=== PATIENT | female | born 2000 | race Caucasian/White ===

== ENCOUNTER → 2022-12-28 | Outpatient (CLI) | payer MEDICAID ==
[2022-12-28 15:49] LABS: HGB 12.5 d/dL (12.0-15.0); MCH 25.3 pg (27.0-32.0); MCHC 32.1 d/dL (32.0-37.0); MCV 78.9 FL (80.0-97.0); Mean Platelet Volume 9.7 FL (9.5-12.2); NRBC Per 100 WBC 0 X 10*3/uL (0.00-0.01); Platelet Count 345 X 10*3/uL (140-440); RBC 4.94 X 10*6/uL (4.10-5.20); RDW 14.1 % (11.5-14.5); WBC 10.62 X 10*3/uL (4.50-10.00)
[2022-12-28 16:02] LABS: T4, Free (Free Thyroxine) 1.12 ng/dL (0.80-1.80); Testosterone 55.2 ng/dL (9.01-47.94)
[2022-12-28 16:48] LABS: Follicle Stimulating Hormone 5.6 mIU/mL
== END | disposition home or self-care (01) ==
LOC: LABMAIN 10:52
PROVIDERS: ATTEND Obstetrics & Gynecology Obstetrics
DX: N92.0 Excessive and frequent menstruation with regular cycle (principal)
CPT/HCPCS: 83001; 83036; 84403; 84439; 84443; 85027

== ENCOUNTER 2024-10-01 11:46 | Emergency (ER) | payer OTHER, BC ==
--- NOTE | 2024-10-01 12:19 | ED ---
General Adult HPI - General Chief complaint: Head Injury Stated complaint: [facility]- Head Injury Time Seen by Provider: 10/01/24 12:05 Source: patient, RN notes reviewed Mode of arrival: ambulatory Limitations: no limitations - History of Present Illness Initial comments: Patient is a 23-year-old female presenting to the emergency department with concern for head injury. Patient states she was struck in the chin by a medium size dog and has had symptoms since that time. Patient feels dizzy. Patient has nausea, no vomiting. Patient does have headache. Headache is rated 4/10. - Related Data Allergies Allergy/AdvReac Type Severity Reaction Status Date / Time No Known Allergies Allergy Verified 10/01/24 11:59 Review of Systems ROS Statement: Those systems with pertinent positive or pertinent negative responses have been documented in the HPI. ROS Other: All systems not noted in ROS Statement are negative. Constitutional: Denies: fever Eyes: Denies: eye pain ENT: Denies: ear pain Respiratory: Denies: cough Cardiovascular: Denies: chest pain Endocrine: Denies: fatigue Gastrointestinal: Reports: nausea Neurological: Reports: as per HPI, headache. Denies: weakness Past Medical History Additional Past Medical History / Comment(s): PCOS History of Any Multi-Drug Resistant Organisms: None Reported Past Surgical History: No Surgical Hx Reported Past Psychological History: Anxiety Smoking Status: Never smoker Past Alcohol Use History: Occasional Past Drug Use History: None Reported General Exam Limitations: no limitations General appearance: alert, in no apparent distress Head exam: Present: atraumatic Eye exam: Present: normal appearance, PERRL, EOMI ENT exam: Present: normal oropharynx Neck exam: Present: normal inspection, full ROM. Absent: tenderness Respiratory exam: Present: normal lung sounds bilaterally Cardiovascular Exam: Present: regular rate, normal rhythm GI/Abdominal exam: Present: soft. Absent: tenderness Extremities exam: Present: normal inspection Neurological exam: Present: alert, CN II-XII intact. Absent: motor sensory deficit Expanded Neurological exam: Present: protecting the airway Speech: Present: fluid speech Cranial nerves: EOM's Intact: Normal, Facial Sensation: Normal Sensory exam: Upper Extremity Light Touch: Normal, Lower Extremity Light Touch: Normal Motor strength exam: RUE: 5, LUE: 5, RLE: 5, LLE: 5 Eye Response: (4) open spontaneously Motor Response: (6) obeys commands Verbal Response: (5) oriented Psychiatric exam: Present: normal affect, normal mood Skin exam: Present: normal color Course Vital Signs 10/01/24 10/01/24 12:00 12:45 Temperature 97.6 F 98.7 F Pulse Rate 96 89 Respiratory 16 18 Rate Blood Pressure 139/86 124/83 O2 Sat by Pulse 98 98 Oximetry Medical Decision Making - Medical Decision Making CT scan ordered secondary to dangerous mechanism of injury Was pt. sent in by a medical professional or institution (, PA, SEQUINS SPOOLER, urgent care, hospital, or detention...) When possible be specific @ -Patient sent from work Did you speak to anyone other than the patient for history (EMS, parent, family, police, friend...)? What history was obtained from this source @ -No Did you review nursing and triage notes (agree or disagree)? Why? @ -I reviewed and agree with nursing and triage notes Were old charts reviewed (outside hosp., previous admission, EMS record, old EKG, old radiological studies, urgent care reports/EKG's, detention records)? Report findings @ -No old charts were reviewed Differential Diagnosis (chest pain, altered mental status, abdominal pain women, abdominal pain men, vaginal bleeding, weakness, fever, dyspnea, syncope, headache, dizziness, GI bleed, back pain, seizure, CVA, palpatations, mental health, musculoskeletal)? @ -Differential Headache: Migraine, tension, cluster, carbon monoxide, central venous thrombosis, pension karma temporal arteritis, acute closure glaucoma, intercranial hemorrhage, mastoiditis, sinusitis, head injury, this is not meant to be an all-inclusive list. EKG interpreted by me (3pts min.). @ -As above X-rays interpreted by me (1pt min.). @ -None done CT interpreted by me (1pt min.). @ -CT scan of the brain shows no acute intercranial abnormality. There is left maxillary sinus cyst U/S interpreted by me (1pt. min.). @ -None done What testing was considered but not performed or refused? (CT, X-rays, U/S, labs)? Why? @ -None What meds were considered but not given or refused? Why? @ -None Did you discuss the management of the patient with other professionals (professionals i.e. , PA, SEQUINS SPOOLER, lab, RT, psych nurse, licensed master social worker, landscape designer, teacher, deck officer, case aide)? Give summary @ -No Was smoking cessation discussed for >3mins.? @ -No Was critical care preformed (if so, how long)? @ -No Were there social determinants of health that impacted care today? How? (Homelessness, low income, unemployed, alcoholism, drug addiction, transportation, low edu. Level, literacy, decrease access to med. care, prison, rehab)? @ -No Was there de-escalation of care discussed even if they declined (Discuss DNR or withdrawal of care, Hospice)? DNR status @ -No What co-morbidities impacted this encounter? (DM, HTN, Smoking, COPD, CAD, Cancer, CVA, ARF, Chemo, Hep., AIDS, mental health diagnosis, sleep apnea, morbid obesity)? @ -None Was patient admitted / discharged? Hospital course, mention meds given and route, prescriptions, significant lab abnormalities, going to OR and other pertinent info. @ -Patient presents with head injury with associated nausea, headache and lightheadedness. CT scan without acute intracranial abnormality. Patient updated on results. Patient offered Tylenol and antiemetic medication however refuses. Undiagnosed new problem with uncertain prognosis? @ -No Drug Therapy requiring intensive monitoring for toxicity (Heparin, Nitro, Insulin, Cardizem)? @ -No Were any procedures done? @ -No Diagnosis/symptom? @ -Head injury Acute, or Chronic, or Acute on Chronic? @ -Acute Uncomplicated (without systemic symptoms) or Complicated (systemic symptoms)? @ -Default Side effects of treatment? @ -No Exacerbation, Progression, or Severe Exacerbation? @ -No Poses a threat to life or bodily function? How? (Chest pain, [place], [place], pneumonia, PE, COPD, DKA, ARF, appy, cholecystitis, CVA, Diverticulitis, Homicidal, Suicidal, threat to staff... and all critical care pts) @ -No Disposition Clinical Impression: Head injury Disposition: HOME SELF-CARE Condition: Stable Instructions (If sedation given, give patient instructions): Head Injury (ED) Additional Instructions: Please do follow-up with [facility] [employer] [facility] in the next day or 2. [id number] Tylenol as needed. Return for vomiting, weakness, confusion, worsening headaches, worsening symptoms or other concerns. Is patient prescribed a controlled substance at d/c from ED?: No Referrals: Janet Leonardo DO [Primary Care Provider] - 1-2 days Time of Disposition: 13:18
[2024-10-01 12:47] VITALS: BP 124/83; RESP 18
--- NOTE | 2024-10-01 13:12 | CT ---
EXAMINATION TYPE: CT brain wo con DATE OF EXAM: 10/01/2024 12:17 PM COMPARISON: None. CLINICAL INDICATION: Female, 23 years old with history of headache, bumped heads with a dog, TECHNIQUE: Examination was done in axial plane without intravenous contrast. Coronal and sagittal r econstructions performed. CT DLP: 1096.4 mGycm, Automated exposure control for dose reduction was used. FINDINGS: There is no evidence of acute intracranial hemorrhage, acute ischemic changes, mass, mass-effect, or extra-axial fluid collection. There is no effacement of cerebral sulci or basal subarachnoid cister ns. There is no hydrocephalus. There is no midline shift. Swan-white matter distinction is preserv ed. There is a 2.4 cm mucosal retention cyst within the left maxillary sinus. Mastoid air cells well pneu matized. Orbits and globes are intact. IMPRESSION: No acute intracranial abnormality seen. Incidental 2.4 cm mucosal retention cyst of the left maxillar y sinus. [facility], , 10/01/2024 12:49 PM
[2024-10-01] MEDS: ACETAMINOPHEN TAB 500 MG TAB PO STA (13:55)
[2024-10-01 13:57] VITALS: PULSE 78; TEMP 98.1
== END 2024-10-01 13:57 | disposition home or self-care (01) ==
LOC: EC 11:46
DX: S09.90XA Unspecified injury of head, initial encounter (principal); W54.1XXA Struck by dog, initial encounter
CPT/HCPCS: 70450; 99284

== ENCOUNTER 2024-12-26 13:05 | Emergency (ER) | payer BC, MEDICAID ==
[2024-12-26] MEDS: SODIUM CHLORIDE 0.9% 1,000 ML IV ONE (14:09)
[2024-12-26] MEDS: ONDANSETRON 4 MG/2 ML VIAL IVP STA (14:10)
[2024-12-26] MEDS: KETOROLAC 15 MG/ML 1 ML VIAL IVP STA (14:10)
[2024-12-26 14:30] LABS: ALT 13 U/L (4-34); AST 20 U/L (14-36); African American GFR (CKD) >90 (>60 ml/min/1.73 sqM); Albumin 4.5 g/dL (3.5-5.0); Alkaline Phosphatase 79 U/L (38-126); Anion Gap 12 mmol/L; Blood Urea Nitrogen 13 mg/dL (7-17); Calcium 9.9 mg/dL (8.4-10.2); Carbon Dioxide 22 mmol/L (22-30); Chloride 103 mmol/L (98-107); Glucose 86 mg/dL (74-99); Lipase 112 U/L (23-300); Non-African American GFR(CKD) >90 (>60 ml/min/1.73 sqM); Potassium 4.4 mmol/L (3.5-5.1); Sodium 137 mmol/L (137-145); Total Protein 8.1 g/dL (6.3-8.2)
[2024-12-26 14:41] LABS: Bacteria,Urine Rare /hpf; Bilirubin,Urine Negative (Negative); Blood,Urine Moderate (Negative); Color,Urine Colorless; Glucose,Urine (UA) Negative (Negative); Ketones,Urine Negative (Negative); Leukocyte Esterase,Urine Negative (Negative); Mucus,Urine Rare /hpf; Nitrite,Urine Negative (Negative); PH, Urine 5.5 (5.0-8.0); Protein,Urine Negative (Negative); RBC,Urine 96 /hpf (0-5); Specific Gravity,Urine 1.024 (1.001-1.035); Squamous Epithelial Cell,Urine 1 /hpf (0-4); Urobilinogen,Urine <2.0 mg/dL (<2.0); WBC,Urine 2 /hpf (0-5)
[2024-12-26 14:42] LABS: Basophils # (A) 0.06 10*3/uL (0.00-0.10); Basophils % (A) 0.4 %; Eosinophils # (A) 0.03 10*3/uL (0.04-0.35); Eosinophils % (A) 0.2 %; HCT 40.5 % (37.2-46.3); HGB 13.4 g/dL (12.0-15.0); Lymphocytes # (A) 3.18 10*3/uL (0.90-5.00); Lymphocytes % (A) 20.4 %; MCH 26.3 pg (27.0-32.0); MCHC 33.1 g/dL (32.0-37.0); MCV 79.6 fL (80.0-97.0); Monocytes # (A) 0.94 10*3/uL (0.20-1.00); Monocytes % (A) 6.0 %; Neutrophils # (A) 11.28 10*3/uL (1.80-7.70); Neutrophils % (A) 72.4 %; Platelet Count 331 10*3/uL (140-440); RBC 5.09 10*6/uL (4.10-5.20); RDW 14.1 % (11.5-14.5); WBC 15.58 10*3/uL (4.50-10.00)
--- NOTE | 2024-12-26 15:06 | CT ---
EXAMINATION TYPE: CT abdomen pelvis w con CT DLP: 1185.5 mGycm, Automated exposure control for dose reduction was used. DATE OF EXAM: 12/26/2024 2:58 PM COMPARISON: None CLINICAL INDICATION:Female, 24 years old with history of rlq pain; RLQ PAIN TECHNIQUE: Standard CT of the abdomen and pelvis following the administration of 100 cc of Isovue 3 00 IV contrast material. Coronal and sagittal reformats were performed. FINDINGS: LOWER CHEST: Unremarkable ABDOMEN LIVER: Unremarkable GALLBLADDER AND BILE DUCTS: Unremarkable. PANCREAS: Unremarkable. SPLEEN: Unremarkable. ADRENAL GLANDS: Unremarkable. KIDNEYS AND URETERS: Mild right hydroureteronephrosis with an obstructing 3 mm calculus within the pr oximal right ureter past the ureteropelvic junction. No other right renal calculi identified. Slight decreased enhancement of the right kidney compared to the left. No left-sided hydronephrosis. No left renal calculi or suspicious lesion. PELVIS BLADDER: Unremarkable REPRODUCTIVE: Unremarkable. ABDOMEN & PELVIS STOMACH AND BOWEL: Stomach and duodenum are unremarkable. No focal bowel wall thickening or surroundi ng inflammatory changes. The appendix is within normal limits. No evidence of bowel obstruction. PERITONEUM: No evidence of pneumoperitoneum or free fluid. VASCULATURE: No evidence of aortic aneurysm. MUSCULOSKELETAL: No acute osseous abnormalities LYMPH NODES: No evidence for lymphadenopathy. SOFT TISSUE/ABDOMINAL WALL: Unremarkable IMPRESSION: Mild right hydroureteronephrosis with an obstructing 3 mm calculus in the proximal right ureter. [facility], , 12/26/2024 3:04 PM
--- NOTE | 2024-12-26 15:28 | ED ---
Abdominal Pain HPI - General Chief Complaint: Abdominal Pain Stated Complaint: Abd Pain Time Seen by Provider: 12/26/24 13:15 Source: patient Mode of arrival: ambulatory Limitations: no limitations - History of Present Illness Initial Comments: 24-year-old female with past medical history of PCOS who presents to the emergency department with right lower abdominal pain. Also reports to nausea. States that her grayness rated 7 out of 10. Pain started around 2:00 this morning. Denies dysuria, hematuria or difficulty voiding. Denies constipation, diarrhea, black or bloody stools. Denies potential . No STIs. Did not take anything for her pain before coming in. No other alleviating, precipitating or modifying factors - Related Data Previous Rx's Medication Instructions Recorded Cephalexin [Keflex] 500 mg PO BID #14 cap 12/26/24 Fluconazole [Diflucan] 150 mg PO ONCE #2 tab 12/26/24 HYDROcodone/APAP 5-325MG [[place] 1 tab PO Q6HR PRN 3 Days #12 tab 12/26/24 5-325] Ketorolac [Toradol] 10 mg PO Q8HR #15 tab 12/26/24 Tamsulosin [Flomax] 0.4 mg PO DAILY #7 cap 12/26/24 Allergies Allergy/AdvReac Type Severity Reaction Status Date / Time No Known Allergies Allergy Verified 12/26/24 13:11 Review of Systems ROS Statement: Those systems with pertinent positive or pertinent negative responses have been documented in the HPI. ROS Other: All systems not noted in ROS Statement are negative. Past Medical History Additional Past Medical History / Comment(s): PCOS History of Any Multi-Drug Resistant Organisms: None Reported Past Surgical History: No Surgical Hx Reported Past Psychological History: Anxiety Smoking Status: Never smoker Past Alcohol Use History: Occasional Past Drug Use History: None Reported General Exam Limitations: no limitations General appearance: alert, in no apparent distress Head exam: Present: atraumatic, normocephalic, normal inspection Eye exam: Present: normal appearance, PERRL, EOMI. Absent: scleral icterus, c onjunctival injection, periorbital swelling ENT exam: Present: normal exam, mucous membranes moist Neck exam: Present: normal inspection. Absent: tenderness, meningismus, lymphadenopathy Respiratory exam: Present: normal lung sounds bilaterally. Absent: respiratory distress, wheezes, rales, rhonchi, stridor Cardiovascular Exam: Present: regular rate, normal rhythm, normal heart sounds. Absent: systolic murmur, diastolic murmur, rubs, gallop, clicks GI/Abdominal exam: Present: soft, normal bowel sounds. Absent: distended, tenderness, guarding, rebound, rigid Extremities exam: Present: normal inspection, full ROM, normal capillary refill. Absent: tenderness, pedal edema, joint swelling, calf tenderness Back exam: Present: normal inspection Neurological exam: Present: alert, oriented X3, CN II-XII intact Psychiatric exam: Present: normal affect, normal mood Skin exam: Present: warm, dry, intact, normal color. Absent: rash Course Vital Signs 12/26/24 12/26/24 12/26/24 13:09 13:28 15:37 Temperature 97.8 F 98.1 F 98.6 F Pulse Rate 85 88 96 Respiratory 18 16 18 Rate Blood Pressure 110/74 130/74 141/76 O2 Sat by Pulse 99 99 100 Oximetry Medical Decision Making - Medical Decision Making Was pt. sent in by a medical professional or institution (, PA, WINCH DRIVER, urgent care, hospital, or [facility]...) When possible be specific @ -No Did you speak to anyone other than the patient for history (EMS, parent, family, police, friend...)? What history was obtained from this source @ -No Did you review nursing and triage notes (agree or disagree)? Why? @ -I reviewed and agree with nursing and triage notes Were old charts reviewed (outside hosp., previous admission, EMS record, old EKG, old radiological studies, urgent care reports/EKG's, [facility] records)? Report findings @ -No old charts were reviewed Differential Diagnosis (chest pain, altered mental status, abdominal pain women, abdominal pain men, vaginal bleeding, weakness, fever, dyspnea, syncope, headache, dizziness, GI bleed, back pain, seizure, CVA, palpatations, mental health, musculoskeletal)? @ -Differential Abdominal Pain Women: Appendicitis, Cholecystitis, diverticulosis, ischemic bowel, pancreatitis, hepatitis, UTI, gastroenteritis, AAA, incarcerated hernia, bowel obstruction, constipation, inflammatory bowel, hepatitis, peptic ulcer disease, splenic infarction, perforated viscus, vulvitis, ovarian torsion, PID, kidney stone, placenta abruption, this is not meant to be an all-inclusive list EKG interpreted by me (3pts min.). @ -Not done X-rays interpreted by me (1pt min.). @ -None done CT interpreted by me (1pt min.). @ -Yes and demonstrates ureteral stone measuring 3 mm right side U/S interpreted by me (1pt. min.). @ -None done What testing was considered but not performed or refused? (CT, X-rays, U/S, la bs)? Why? @ -None What meds were considered but not given or refused? Why? @ -None Did you discuss the management of the patient with other professionals (professionals i.e. DrShi, PA, WINCH DRIVER, lab, RT, psych nurse, executive secretary social welfare, salt operator, teacher, building drafting officer, caser shoe parts)? Give summary @ -No Was smoking cessation discussed for >3mins.? @ -No Was critical care preformed (if so, how long)? @ -No Were there social determinants of health that impacted care today? How? (Homelessness, low income, unemployed, alcoholism, drug addiction, transportation, low edu. Level, literacy, decrease access to med. care, senior living, rehab)? @ -No Was there de-escalation of care discussed even if they declined (Discuss DNR or withdrawal of care, Hospice)? DNR status @ -No What co-morbidities impacted this encounter? (DM, HTN, Smoking, COPD, CAD, Cancer, CVA, ARF, Chemo, Hep., AIDS, mental health diagnosis, sleep apnea, morbid obesity)? @ -None Was patient admitted / discharged? Hospital course, mention meds given and route, prescriptions, significant lab abnormalities, going to OR and other pertinent info. @ -Patient seen and evaluated in bed 2. Thorough history and physical exam was performed. IV access was established. Patient was given Toradol for pain and a liter bolus of normal saline. CT was performed which demonstrates a right sided ureteral stone measuring 3 mm with mild right hydronephrosis. Patient's pain is controlled at this time. She does feel comfortable going home. She was given a dose of Rocephin and Flomax as her urine does demonstrate rare bacteria. Patient will be discharged home on Toradol, [place], Keflex, Flomax with a Diflucan tablet to take at the end. She is to drink plenty of fluids. Follow-up with her primary care doctor and return for any new or worsening symptoms Undiagnosed new problem with uncertain prognosis? @ -No Drug Therapy requiring intensive monitoring for toxicity (Heparin, Nitro, Insulin, Cardizem)? @ -No Were any procedures done? @ -No Diagnosis/symptom? @ -Right lower quadrant pain, acute right ureteral stone with mild hydronephrosis Acute, or Chronic, or Acute on Chronic? @ -Acute Uncomplicated (without systemic symptoms) or Complicated (systemic symptoms)? @ -Complicated Side effects of treatment? @ -No Exacerbation, Progression, or Severe Exacerbation? @ -No Poses a threat to life or bodily function? How? (Chest pain, [place], [place], pneumonia, PE, COPD, DKA, ARF, appy, cholecystitis, CVA, Diverticulitis, Homicidal, Suicidal, threat to staff... and all critical care pts) @ -No - Lab Data Result diagrams: 12/26/24 14:07 12/26/24 14:07 Lab Results 12/26/24 12/26/24 12/26/24 Range/Units 13:41 13:41 14:07 WBC 15.58 H (4.50-10.00) 10*3/uL RBC 5.09 (4.10-5.20) 10*6/uL Hgb 13.4 (12.0-15.0) g/dL Hct 40.5 (37.2-46.3) % MCV 79.6 L (80.0-97.0) fL MCH 26.3 L (27.0-32.0) pg MCHC 33.1 (32.0-37.0) g/dL Plt Count 331 (140-440) 10*3/uL MPV 9.4 L (9.5-12.2) fL Immature Gran % (Auto) 0.6 % Neutrophils % 72.4 % Lymphocytes % 20.4 % Monocytes % 6.0 % Eosinophils % 0.2 % Basophils % 0.4 % Immature Gran # 0.09 H (0.00-0.04) 10*3/uL Neutrophils # 11.28 H (1.80-7.70) 10*3/uL Lymphocytes # 3.18 (0.90-5.00) 10*3/uL Monocytes # 0.94 (0.20-1.00) 10*3/uL Eosinophils # 0.03 L (0.04-0.35) 10*3/uL Basophils # 0.06 (0.00-0.10) 10*3/uL Sodium (137-145) mmol/L Potassium (3.5-5.1) mmol/L Chloride (98-107) mmol/L Carbon Dioxide (22-30) mmol/L Anion Gap mmol/L BUN (7-17) mg/dL Creatinine (0.52-1.04) mg/dL Est GFR (CKD-EPI)AfAm (>60 ml/min/1.73 sqM) Est GFR (CKD-EPI)NonAf (>60 ml/min/1.73 sqM) Glucose (74-99) mg/dL Plasma Lactic Acid Napoleon (0.7-2.0) mmol/L Calcium (8.4-10.2) mg/dL Total Bilirubin (0.2-1.3) mg/dL AST (14-36) U/L ALT (4-34) U/L Alkaline Phosphatase (38-126) U/L Total Protein (6.3-8.2) g/dL Albumin (3.5-5.0) g/dL Lipase (23-300) U/L Urine Color Colorless Urine Appearance Clear (Clear) Urine pH 5.5 (5.0-8.0) Ur Specific Velma 1.024 (1.001-1.035) Urine Protein Negative (Negative) Urine Glucose (UA) Negative (Negative) Urine Ketones Negative (Negative) Urine Blood Moderate H (Negative) Urine Nitrite Negative (Negative) Urine Bilirubin Negative (Negative) Urine Urobilinogen <2.0 (<2.0) mg/dL Ur Leukocyte Esterase Negative (Negative) Urine RBC 96 H (0-5) /hpf Urine WBC 2 (0-5) /hpf Ur Squamous Epith Cells 1 (0-4) /hpf Urine Bacteria Rare H (None) /hpf Urine Mucus Rare H (None) /hpf Urine HCG, Qual Not Detected (Not Detectd) 12/26/24 12/26/24 Range/Units 14:07 14:07 WBC (4.50-10.00) 10*3/uL RBC (4.10-5.20) 10*6/uL Hgb (12.0-15.0) g/dL Hct (37.2-46.3) % MCV (80.0-97.0) fL MCH (27.0-32.0) pg MCHC (32.0-37.0) g/dL Plt Count (140-440) 10*3/uL MPV (9.5-12.2) fL Immature Gran % (Auto) % Neutrophils % % Lymphocytes % % Monocytes % % Eosinophils % % Basophils % % Immature Gran # (0.00-0.04) 10*3/uL Neutrophils # (1.80-7.70) 10*3/uL Lymphocytes # (0.90-5.00) 10*3/uL Monocytes # (0.20-1.00) 10*3/uL Eosinophils # (0.04-0.35) 10*3/uL Basophils # (0.00-0.10) 10*3/uL Sodium 137 (137-145) mmol/L Potassium 4.4 (3.5-5.1) mmol/L Chloride 103 (98-107) mmol/L Carbon Dioxide 22 (22-30) mmol/L Anion Gap 12 mmol/L BUN 13 (7-17) mg/dL Creatinine 0.61 (0.52-1.04) mg/dL Est GFR (CKD-EPI)AfAm >90 (>60 ml/min/1.73 sqM) Est GFR (CKD-EPI)NonAf >90 (>60 ml/min/1.73 sqM) Glucose 86 (74-99) mg/dL Plasma Lactic Acid Napoleon 0.9 (0.7-2.0) mmol/L Calcium 9.9 (8.4-10.2) mg/dL Total Bilirubin 0.3 (0.2-1.3) mg/dL AST 20 (14-36) U/L ALT 13 (4-34) U/L Alkaline Phosphatase 79 (38-126) U/L Total Protein 8.1 (6.3-8.2) g/dL Albumin 4.5 (3.5-5.0) g/dL Lipase 112 (23-300) U/L Urine Color Urine Appearance (Clear) Urine pH (5.0-8.0) Ur Specific Velma (1.001-1.035) Urine Protein (Negative) Urine Glucose (UA) (Negative) Urine Ketones (Negative) Urine Blood (Negative) Urine Nitrite (Negative) Urine Bilirubin (Negative) Urine Urobilinogen (<2.0) mg/dL Ur Leukocyte Esterase (Negative) Urine RBC (0-5) /hpf Urine WBC (0-5) /hpf Ur Squamous Epith Cells (0-4) /hpf Urine Bacteria (None) /hpf Urine Mucus (None) /hpf Urine HCG, Qual (Not Detectd) Disposition Clinical Impression: Ureteral stone with hydronephrosis, RLQ abdominal pain Disposition: HOME SELF-CARE Condition: Stable Instructions (If sedation given, give patient instructions): Ureteral Stones (ED) Additional Instructions: Alternate taking the [place] with the Toradol every 4 hours. Take the Flomax daily. Take the antibiotics twice daily and save the Diflucan until the antibiotics are gone. Strain all of your urine. Follow-up with the urologist. Return for any new or worsening symptoms Prescriptions: Fluconazole [Diflucan] 150 mg PO ONCE #2 tab Tamsulosin [Flomax] 0.4 mg PO DAILY #7 cap Cephalexin [Keflex] 500 mg PO BID #14 cap HYDROcodone/APAP 5-325MG [[place] 5-325] 1 tab PO Q6HR PRN 3 Days #12 tab PRN Reason: Pain Ketorolac [Toradol] 10 mg PO Q8HR #15 tab Is patient prescribed a controlled substance at d/c from ED?: No Referrals: Janet Leonardo DO [Primary Care Provider] - 1-2 days Matteo Wilder MD [STAFF PHYSICIAN] - 1-2 days Time of Disposition: 15:28
[2024-12-26 15:38] VITALS: BP 141/76; PULSE 96; RESP 18; TEMP 98.6
[2024-12-26] MEDS: cefTRIAXone IN SWFI 1,000 MG/10 ML SYRINGE IVP STA (15:42)
[2024-12-26] MEDS: cefTRIAXone 1,000 MG VIAL (IM USE) IM STA (15:46)
[2024-12-26] MEDS: TAMSULOSIN 0.4 MG CAP.ER.24H PO STA (15:46)
== END 2024-12-26 15:55 | disposition home or self-care (01) ==
LOC: EC 13:05
DX: N13.2 Hydronephrosis with renal and ureteral calculous obstruction (principal)
CPT/HCPCS: 36415; 74177; 80053; 81001; 81025; 83605; 83690; 85025; 96361; 96372; 96374; 96375; 99284